=== PATIENT | female | born 1940 | race Two or more races ===

== ENCOUNTER 2022-07-04 15:43 | Emergency (ER) | payer OTHER ==
[~2022-07-04] VITALS: Ht 152.4 cm; Wt 60.1 kg
[2022-07-04 20:49] VITALS: BP 171/55
== END 2022-07-04 20:55 | disposition home or self-care (01) ==
LOC: ER 15:43
DX: S00.83XA Contusion of other part of head, initial encounter (principal); I10 Essential (primary) hypertension; E78.5 Hyperlipidemia, unspecified; W01.198A Fall on same level from slipping, tripping and stumbling with subsequent striking against other object, initial encounter; Y93.89 Activity, other specified; Y92.89 Other specified places as the place of occurrence of the external cause; Y99.8 Other external cause status
CPT/HCPCS: 70450; 70486; 72125